=== PATIENT | female | born 1995 | race Caucasian/White ===

== ENCOUNTER 2016-12-17 13:42 | Emergency (ER) | payer SELFPAY ==
[~2016-12-17] VITALS: Ht 165.1 cm; Wt 55.0 kg
[~2016-12-17 13:42] MED LIST: IBUP400T22 PO; NPH10OT LEFT EAR
[2016-12-17 13:44] VITALS: Ht 165.1 cm; Wt 55.0 kg
[2016-12-17] MEDS ORDERED: ACET1TAB40 PO (14:30)
[2016-12-17] MEDS ORDERED: OFLO5DRO7 BOTH EARS (14:30)
[2016-12-17] MEDS ORDERED: CEPH-443 PO (14:30)
[2016-12-17] MEDS ORDERED: IBUPROFEN 200 MG TAB PO ONE (14:30)
--- NOTE | 2016-12-17 14:32 | ERD ---
ER Documentation Chief Complaint Date/Time DATE: 12/17/16 TIME: 14:31 Chief Complaint EAR PAIN X3 DAYS, WORSE IN RIGHT EAR HPI This 21-year-old female presents with bilateral ear pain for last 3 days. Right greater than left. She denies any cough or congestion. She has low- grade temperature at triage. She denies any inciting event such as swimming or dirty water. ROS All systems reviewed and are negative except as per history of present illness. Medications Home Meds Active Scripts Cephalexin* (Keflex*) 500 Mg Capsule, 500 MG PO QID for 7 Days, CAP Prov:CARLENE REDDY MD 12/17/16 Ofloxacin Otic (Ofloxacin Otic) 5 Ml Drops, 5 DROP BOTH EARS BID for 10 Days, # 1 BOTTLE Prov:CARLENE REDDY MD 12/17/16 Acetaminophen with Codeine (Acetaminophen-Cod #3 Tablet) 1 Each Tablet, 1 TAB PO Q6H Y for PAIN, #10 TAB Prov:CARLENE REDDY MD 12/17/16 Ibuprofen* (Motrin*) 400 Mg Tab, 400 MG PO Q6, #14 TAB Prov:CARLENE REDDY MD 11/27/15 Neomycin/Polymyxin/Hydrocort* (Cortisporin* Otic) 10 Ml Susp, 4 DROP LEFT EAR QID for 7 Days, EA Prov:CARLENE REDDY MD 11/27/15 Allergies Allergies: Coded Allergies: No Known Allergy (Unverified , 11/27/15) PMhx/Soc History of Surgery: No Anesthesia Reaction: No Hx Neurological Disorder: No Hx Respiratory Disorders: No Hx Cardiac Disorders: No Hx Psychiatric Problems: No Hx Miscellaneous Medical Probl: Yes (MIGRAINE ) Hx Alcohol Use: No Hx Substance Use: No Hx Tobacco Use: No Physical Exam Vitals Vital Signs Date Time Temp Pulse Resp B/P Pulse Ox O2 Delivery O2 Flow Rate FiO2 12/17/16 13:44 100.2 116 20 134/73 98 Physical Exam Const: [] Alert, [id number]. Head: Atraumatic Eyes: Normal Conjunctiva ENT: Normal External Ears, Nose and Mouth. There is some moisture and discharge in the bilateral external auditory canals with decreased diameter. There is pain with passive range of motion. Is no mastoid tenderness. TMs difficult to visualize but appear grossly normal. Neck: Full range of motion..~ No meningismus. Resp: Clear to auscultation bilaterally Cardio: Regular rate and rhythm, no murmurs Abd: Soft, non tender, non distended. Normal bowel sounds Skin: No petechiae or rashes Back: No midline or flank tenderness Ext: No cyanosis, or edema Neur: Awake and alert Psych: Normal Mood and Affect Results 24 hrs Current Medications Medications (Trade) Dose Ordered Sig/Greg Route PRN Reason Start Time Stop Time Status Last Admin Dose Admin Ibuprofen (Motrin) 400 mg ONCE ONCE PO 12/17/16 14:30 12/17/16 14:31 DC Procedures/MDM Patient presents with signs and symptoms of otitis externa. Given the presence of fever will be treated with ofloxacin, Keflex and ibuprofen and Tylenol No. 3. There is no evidence of mastoiditis, meningitis, significant facial cellulitis. Patient was advised to follow-up with her doctor this week or return to the ER for any worsening symptoms. The patient was stable with no new complaints during the ER course. Clinically, there is no current evidence to suggest meningitis, sepsis, acute abdomen, pneumonia, acute coronary syndrome , pulmonary embolism, or any other emergent condition appearing to require further evaluation or hospitalization. The patient should certainly return for any new or worsening symptoms per the aftercare instructions. They should otherwise follow-up with her primary care doctor for reevaluation this week. Departure Diagnosis: Primary Impression: Otitis externa Otitis externa type: unspecified type Laterality: bilateral Chronicity: unspecified Qualified Code: H60.93 - Otitis externa of both ears, unspecified chronicity, unspecified type Additional Impression: Ear problem Laterality: bilateral Qualified Code: H93.93 - Ear problem, bilateral Condition: Stable Patient Instructions: External Ear Infection (Adult) Additional Instructions: Recheck for new or worsening symptoms or primary care doctor. CARLENE REDDY MD December 17, 2016 14:32
== END 2016-12-17 14:54 | disposition home or self-care (01) ==
LOC: FTE 13:42
DX: H60.93 Unspecified otitis externa, bilateral (principal)
CPT/HCPCS: 99284